=== PATIENT | female | born 1935 | race Hispanic/Latino ===

== ENCOUNTER 2017-05-03 08:51 | Inpatient (IN) | payer MEDICARE ==
[2017-05-03] MEDS ORDERED: ANTIVERT PO ONE (10:11)
[2017-05-03 10:41] LABS: Basophils % (Auto) 0.7 % (0.0-1.8); Eosinophils % (Auto) 1.5 % (0.0-4.3); Hematocrit 41.4 % (30.3-42.9); Hemoglobin 13.7 gm/dl (10.1-14.3); Mean Corpuscular HGB Conc 33 % (30-34); Mean Corpuscular Hemoglobin 28 pg (28-32); Mean Corpuscular Volume 85 fl (79-97); Platelet Count 217 K/mm3 (140-440); Red Blood Count 4.85 M/mm3 (3.65-5.03); White Blood Count 7.8 K/mm3 (4.5-11.0)
[2017-05-03 10:54] LABS: Alanine Aminotransferase 19 units/L (7-56); Albumin/Globulin Ratio 1.3 %; Alkaline Phosphatase 55 units/L (35-129); Anion Gap 18 mmol/L; Blood Urea Nitrogen 13 mg/dL (7-17); Calcium 9.4 mg/dL (8.4-10.2); Carbon Dioxide 30 mmol/L (22-30); Chloride 96.2 mmol/L (98-107); Glucose 131 mg/dL (65-100); Potassium 3.5 mmol/L (3.6-5.0); Sodium 141 mmol/L (137-145)
--- NOTE | 2017-05-03 10:55 | Emergency Department Report ---
ED Dizziness HPI - General Chief Complaint: Nausea/Vomiting/Diarrhea Stated Complaint: NAUSEA/HYPERTENSION Time Seen by Provider: 05/03/17 10:03 Source: patient, family, EMS Mode of arrival: Stretcher Limitations: No Limitations - History of Present Illness Initial Comments: 81-year-old female with past medical history of hypertension presenting to the ED complaining of near syncope and dizziness. Patient states symptoms started prior to ED arrival when she woke up. Pt states she felt light headed multiple times it was worse with ambulation, improves with rest. The patient states the symptoms are non reproducible with movement of her head. Patient states also that at times she gets severely dizzy to the point where she has vomited several times. Patient denies abdominal pain. Patient states emesis and nonbloody nonbilious. Patient denies: Fever/chills, headache, neck pain, neurologic deficits chest pain. MD Complaint: dizziness, lightheadedness, near syncope -: Sudden Timing: sudden onset Description: lightheadedness, off-balance History of Same: No History of Trauma: No Severity: moderate Improves With: nothing Worsens With: movement, position Associated Symptoms: denies: chest pain, confusion, cough, diaphoresis, fever/ chills, loss of appetite, malaise, seizure, shortness of breath, syncope, weakness - Related Data Allergies Allergy/AdvReac Type Severity Reaction Status Date / Time No Known Allergies Allergy Verified 05/03/17 09:11 ED Review of Systems ROS: Stated complaint: NAUSEA/HYPERTENSION Other details as noted in HPI Constitutional: denies: chills, fever Eyes: denies: eye pain, eye discharge, vision change ENT: denies: ear pain, throat pain Respiratory: denies: cough, shortness of breath, wheezing Cardiovascular: denies: chest pain, palpitations, dyspnea on exertion Endocrine: no symptoms reported Gastrointestinal: nausea, vomiting. denies: abdominal pain, diarrhea, constipation, hematemesis Genitourinary: denies: urgency, dysuria, discharge Musculoskeletal: denies: back pain, joint swelling, arthralgia Skin: denies: rash, lesions Neurological: abnormal gait, vertigo. denies: headache, weakness, paresthesias Psychiatric: denies: anxiety, depression Hematological/Lymphatic: denies: easy bleeding, easy bruising ED Past Medical Hx - Past Medical History Previous Medical History?: Yes Hx Hypertension: Yes Hx Diabetes: Yes (pre-diabetes) Hx GERD: Yes Hx of Cancer: Yes (colon CA w/resection 1993) Hx Arthritis: Yes Hx COPD: Yes Additional medical history: osteoporosis, bladder prolapse - Surgical History Past Surgical History?: Yes Additional Surgical History: colon resection 1993 - Social History Smoking Status: Never Smoker Substance Use Type: None ED Physical Exam - General Limitations: No Limitations General appearance: alert, in no apparent distress - Head Head exam: Present: atraumatic, normocephalic - Eye Eye exam: Present: normal appearance - ENT ENT exam: Present: mucous membranes moist - Neck Neck exam: Present: normal inspection - Respiratory Respiratory exam: Present: normal lung sounds bilaterally. Absent: respiratory distress - Cardiovascular Cardiovascular Exam: Present: regular rate, normal rhythm. Absent: systolic murmur, diastolic murmur, rubs, gallop - GI/Abdominal GI/Abdominal exam: Present: soft, normal bowel sounds. Absent: distended, tenderness, guarding, rebound, hyperactive bowel sounds, hypoactive bowel sounds , organomegaly, bruit, pulsatile mass, hernia - Extremities Exam Extremities exam: Present: normal inspection - Back Exam Back exam: Present: normal inspection - Neurological Exam Neurological exam: Present: alert, oriented X3, CN II-XII intact, reflexes normal. Absent: motor sensory deficit - Psychiatric Psychiatric exam: Present: normal affect, normal mood - Skin Skin exam: Present: warm, dry, intact, normal color. Absent: rash ED Course Vital Signs 05/03/17 05/03/17 05/03/17 08:51 09:00 09:10 Temperature 97.7 F Pulse Rate 70 Respiratory 16 Rate Blood Pressure 162/89 162/89 Blood Pressure 162/89 [Left] O2 Sat by Pulse 95 93 94 Oximetry 05/03/17 05/03/17 05/03/17 09:20 09:30 09:40 Temperature Pulse Rate Respiratory Rate Blood Pressure 181/84 181/84 178/78 Blood Pressure [Left] O2 Sat by Pulse 94 94 93 Oximetry 05/03/17 05/03/17 05/03/17 09:50 10:00 10:10 Temperature Pulse Rate Respiratory Rate Blood Pressure 180/79 180/79 173/80 Blood Pressure [Left] O2 Sat by Pulse 94 95 93 Oximetry - Reevaluation(s) Reevaluation #1: 05/03/17 11:04 NIHSS: 0 ED Medical Decision Making - Lab Data Result diagrams: 05/03/17 10:19 05/03/17 10:19 - EKG Data -: EKG Interpreted by Me EKG shows normal: sinus rhythm, axis (normal ), intervals (QTC 453) Rate: normal (64) - EKG Data Interpretation: no acute changes, normal EKG - Radiology Data Radiology results: report reviewed, image reviewed interpreted by me: CT head: No acute findings. Dr. Williamson CT head: Final impression: No acute intracranial abnormality. Dr Williamson Acute abdomen series: 1 significant bowel gas pattern with right lower quadrant posterior cold surgical anastomosis noted as described. Please correlate 2. Various other findings, included right prior lung surgery. Dr Bourne - Medical Decision Making 81-year-old female with past medical history of hypertension, CAD COPD presenting to the emergency room with near-syncope and dizziness. Patient workup negative for acute findings however her symptoms have not improved since being given treatment in the ED. I will admit for observation and further workup. I have considered differentials of : ACS, COPD exacerbation, AAA, CVA however workup, cleaning physical exam is not consistent with these diagnoses. Critical Care Time: No Critical care attestation.: If time is entered above; I have spent that time in minutes in the direct care of this critically ill patient, excluding procedure time. ED Disposition Clinical Impression: Near syncope Disposition: OP ADMIT IP TO THIS HOSP Is pt being admited?: Yes Does the pt Need Aspirin: No Condition: Stable Referrals: CLAUDIA PIERCE MD [Primary Care Provider] - 3-5 Days
--- NOTE | 2017-05-03 10:56 | Cat Scan Report ---
CT scan of head without contrast: History: Dizziness. Findings: Ventricles are normal in size and midline in location. No evidence of acute ischemia, hemorrhage or mass. No extra axial fluid collection. Normal brainstem and cerebellum. Impression: No acute intracranial abnormality.
--- NOTE | 2017-05-03 11:01 | XRay Report ---
ABDOMINAL SERIES INDICATION: Nausea. COMPARISON: None similar. FINDINGS: Abdominal series, three radiographs, demonstrate few air containing small bowel loop in the left lower quadrant measuring 2.4 cm caliber. Ascending colon demonstrates anastomotic staple line with caliber of approximately 6.3 cm. No significant further distal colonic air noted. Rectal air and stool though seen. No focal suspicious calcifications, pneumatosis or pneumoperitoneum. Chest radiograph demonstrates normal heart size, aortic knob calcifications and right hilar/suprahilar scarring. Right hemidiaphragm may also be elevated. Right fifth rib resection. Few mild bony degenerative changes. Osteopenia. CONCLUSION: 1. Nonspecific bowel gas pattern with right lower quadrant postsurgical anastomosis noted, as described. Please correlate. 2. Various other findings, including prior right lung surgery. Thank you for the opportunity to participate in this patient's care.
[2017-05-03 13:29] LABS: Bacteria,Urine 1+ /HPF (Negative); Bilirubin,Urine NEG (Negative); Blood,Urine NEG (Negative); Ketones,Urine NEG (Negative); Leukocyte Esterase,Urine LG (Negative); Mucus,Urine FEW /HPF; Nitrite,Urine NEG (Negative); Protein,Urine <15 mg/dL mg/dL (Negative); Urobilinogen,Urine < 2.0 mg/dL (<2.0)
--- NOTE | 2017-05-03 13:29 | Admit Criteria Form ---
Admission Criteria Documentation: DIZZINESS Clinical Indications for Admission to Inpatient Care (Place 'X' for any and all applicable criteria): Admission is indicated for ANY ONE of the following(1)(2)(3)(4): [X ]I. Inpatient admission required rather than observation care (Also use Dizziness: Observation Care as appropriate) because of ANY ONE of the following: [ ]a) Hemodynamic instability that is severe or persistent [ ]b) Signs or symptoms that are severe or persistent (eg, vomit, orthostasis, inability to ambulate) [ ]c) Cardiac arrhythmias of immediate concern [ ]d) Severe (new) neurologic findings requiring inpatient care as indicated by ANY ONE of the following(6)(7): [ ]1) Cerebral bleeding, ischemia, or vasospasm(8)(9) [ ]2) Increased intracranial pressure or hydrocephalus(10)(11)(12) [ ]3) Papilledema [ ]4) Cerebral edema [ ]5) Mass effect on CT scan [ ]e) Continuous IV infusion of anticoagulation, platelet inhibitor, vasoactive, or antiarrhythmic medication [ ]f) Cerebral bleeding, hydrocephalus, or vasospasm monitoring(14) [ ]g) Increased intracranial pressure or cerebral edema monitoring [ ]h) Vomiting that is severe or persistent [X ]i) Other condition, treatment or monitoring requiring inpatient admission [ ]II. A suspected etiology that requires admission for treatment [ ]III. Acute bacterial labyrinthitis [ ]IV. Cerebellar, brainstem, or cerebral ischemia or hemorrhage (5) Extended stay beyond goal length of stay may be needed for evaluating and treating a specific cause of dizziness, including(32) [ ]a) Head injury (Also use Traumatic Brain Injury, Nonsurgical Treatment guideline) [ ]b) New-onset vertebrobasilar vascular insufficiency [ ]c) Acute Meniere disease with intractable symptoms [ ]d) Cardiac arrhythmias or conduction defects [ ]e) Acute neurologic event causing dizziness [ ]f) Myocardial ischemia [ ]g) Acute bacterial labyrinthitis. [ ]h) Severe acute vestibular neuronitis The original [facility] content created by [email or web address] has been revised. The portions of the content which have been revised are identified through the use of italic text or in bold, and [facility] has neither reviewed nor approved the modified material. All other unmodified content is copyright [facility]. Please see references footnoted in the original [facility] edition 2016 Admission Criteria Met: Yes
--- NOTE | 2017-05-03 21:08 | History and Physical Report ---
History of Present Illness Date of examination: 05/03/17 Date of admission: 05/03/17 13:36 Chief complaint: [place] Dizzy and was about to pass out 1 hr ago History of present illness: KARLEE: 81-year-old female with past medical history of hypertension presenting to the ED complaining of near syncope and dizziness. Patient states symptoms started prior to ED arrival when she woke up. Pt states she felt light headed multiple times it was worse with ambulation, improves with rest. The patient states the symptoms are non reproducible with movement of her head. Patient states also that at times she gets severely dizzy to the point where she has vomited several times. Patient denies abdominal pain. Patient states emesis was nonbloody and nonbilious. Patient denies: Fever/chills, headache, neck pain, neurologic deficits chest pain. MD Complaint: dizziness, lightheadedness, near syncope -: Sudden Timing: sudden onset Description: lightheadedness, off-balance History of Same: No History of Trauma: No Severity: moderate Improves With: nothing Worsens With: movement, position Associated Symptoms: denies: chest pain, confusion, cough, diaphoresis, fever/ chills, loss of appetite, malaise, seizure, shortness of breath, syncope, weakness - Related Data Allergies Allergy/AdvReac Type Severity Reaction Status Date / Time No Known Allergies Allergy Verified 05/03/17 09:11 - Past Medical History Previous Medical History?: Yes Hx Hypertension: Yes Hx Diabetes: Yes (pre-diabetes) Hx GERD: Yes Hx of Cancer: Yes (colon CA w/resection 1993) Hx Arthritis: Yes Hx COPD: Yes Additional medical history: osteoporosis, bladder prolapse - Surgical History Past Surgical History?: Yes Additional Surgical History: colon resection 1993 - Social History Smoking Status: Never Smoker Substance Use Type: None Fam Hx HTN Review of Systems Stated complaint: NAUSEA/HYPERTENSION Other details as noted in HPI Constitutional: denies: chills, fever Eyes: denies: eye pain, eye discharge, vision change ENT: denies: ear pain, throat pain Respiratory: denies: cough, shortness of breath, wheezing Cardiovascular: denies: chest pain, palpitations, dyspnea on exertion Endocrine: no symptoms reported Gastrointestinal: nausea, vomiting. denies: abdominal pain, diarrhea, constipation, hematemesis Genitourinary: denies: urgency, dysuria, discharge Musculoskeletal: denies: back pain, joint swelling, arthralgia Skin: denies: rash, lesions Neurological: abnormal gait, vertigo. denies: headache, weakness, paresthesias Psychiatric: denies: anxiety, depression Hematological/Lymphatic: denies: easy bleeding, easy bruising Medications and Allergies Allergies Allergy/AdvReac Type Severity Reaction Status Date / Time No Known Allergies Allergy Verified 05/03/17 09:11 Home Medications Medication Instructions Recorded Confirmed Last Taken Type Aspirin [Adult Low Dose Aspirin EC] 81 mg PO DAILY 05/03/17 05/03/17 05/02/17 History Carvedilol [Coreg] 3.125 mg PO BID 05/03/17 05/03/17 05/02/17 History Ergocalciferol [Vitamin D2] 1 cap PO QWEEK 05/03/17 05/03/17 04/29/17 History Hydrochlorothiazide [HCTZ] 25 mg PO QDAY 05/03/17 05/03/17 05/02/17 History Lovastatin [Altoprev] 20 mg PO QPM 05/03/17 05/03/17 05/02/17 History metFORMIN [Glucophage] 500 mg PO QDAY 05/03/17 05/03/17 05/02/17 History Exam - Physical Exam Narrative exam: Lying comfortably - Constitutional Vitals: Temp Pulse Resp BP Pulse Ox 98.5 F 62 20 140/77 94 05/03/17 19:38 05/03/17 20:40 05/03/17 19:38 05/03/17 19:38 05/03/17 19:38 General appearance: Present: no acute distress, well-nourished - EENT Eyes: Present: PERRL ENT: hearing intact, clear oral mucosa - Neck Neck: Present: supple, normal ROM - Respiratory Respiratory effort: normal Respiratory: bilateral: CTA - Cardiovascular Heart rate: 76 Rhythm: regular Heart Sounds: Present: S1 & S2. Absent: rub, click - Extremities Extremities: pulses intact, pulses symmetrical, No edema Peripheral Pulses: within normal limits - Abdominal General gastrointestinal: Present: soft, non-tender, non-distended, normal bowel sounds Female genitourinary: Present: normal - Rectal Rectal Exam: deferred - Integumentary Integumentary: Present: clear, warm, dry - Musculoskeletal Musculoskeletal: gait normal, strength equal bilaterally - Psychiatric Psychiatric: appropriate mood/affect, intact judgment & insight - Neurologic Neurologic: CNII-XII intact, moves all extremities, gait normal - Allied Health Allied health notes reviewed: nursing Results - Labs CBC & Chem 7: 05/03/17 10:19 05/03/17 10:19 Labs: Laboratory Last Values WBC 7.8 K/mm3 (4.5-11.0) 05/03/17 10:19 RBC 4.85 M/mm3 (3.65-5.03) 05/03/17 10:19 Hgb 13.7 gm/dl (10.1-14.3) 05/03/17 10:19 Hct 41.4 % (30.3-42.9) 05/03/17 10:19 MCV 85 fl (79-97) 05/03/17 10:19 MCH 28 pg (28-32) 05/03/17 10:19 MCHC 33 % (30-34) 05/03/17 10:19 RDW 14.0 % (13.2-15.2) 05/03/17 10:19 Plt Count 217 K/mm3 (140-440) 05/03/17 10:19 Lymph % (Auto) 11.2 % (13.4-35.0) L 05/03/17 10:19 [place] % (Auto) 5.1 % (0.0-7.3) 05/03/17 10:19 Eos % (Auto) 1.5 % (0.0-4.3) 05/03/17 10:19 Baso % (Auto) 0.7 % (0.0-1.8) 05/03/17 10:19 Lymph # 0.9 K/mm3 (1.2-5.4) L 05/03/17 10:19 [place] # 0.4 K/mm3 (0.0-0.8) 05/03/17 10:19 Eos # 0.1 K/mm3 (0.0-0.4) 05/03/17 10:19 Baso # 0.1 K/mm3 (0.0-0.1) 05/03/17 10:19 Seg Neutrophils % 81.5 % (40.0-70.0) H 05/03/17 10:19 Seg Neutrophils # 6.4 K/mm3 (1.8-7.7) 05/03/17 10:19 Sodium 141 mmol/L (137-145) 05/03/17 10:19 Potassium 3.5 mmol/L (3.6-5.0) L 05/03/17 10:19 Chloride 96.2 mmol/L (98-107) L 05/03/17 10:19 Carbon Dioxide 30 mmol/L (22-30) 05/03/17 10:19 Anion Gap 18 mmol/L 05/03/17 10:19 BUN 13 mg/dL (7-17) 05/03/17 10:19 Creatinine 0.5 mg/dL (0.7-1.2) L 05/03/17 10:19 Estimated GFR > 60 ml/min 05/03/17 10:19 BUN/Creatinine Ratio 26.00 % 05/03/17 10:19 Glucose 131 mg/dL (65-100) H 05/03/17 10:19 Calcium 9.4 mg/dL (8.4-10.2) 05/03/17 10:19 Total Bilirubin 0.70 mg/dL (0.1-1.2) 05/03/17 10:19 AST 28 units/L (5-40) 05/03/17 10:19 ALT 19 units/L (7-56) 05/03/17 10:19 Alkaline Phosphatase 55 units/L (35-129) 05/03/17 10:19 Troponin T < 0.010 ng/mL (0.00-0.029) 05/03/17 10:19 NT-Pro-B Natriuret Pep 135.4 pg/mL (0-900) 05/03/17 10:19 Total Protein 7.0 g/dL (6.3-8.2) 05/03/17 10:19 Albumin 4.0 g/dL (3.9-5) 05/03/17 10:19 Albumin/Globulin Ratio 1.3 % 05/03/17 10:19 Urine Color Yellow (Yellow) 05/03/17 13:11 Urine Turbidity Clear (Clear) 05/03/17 13:11 Urine pH 6.0 (5.0-7.0) 05/03/17 13:11 Ur Specific [place] 1.014 (1.003-1.030) 05/03/17 13:11 Urine Protein <15 mg/dl mg/dL (Negative) 05/03/17 13:11 Urine Glucose (UA) Neg mg/dL (Negative) 05/03/17 13:11 Urine Ketones Neg mg/dL (Negative) 05/03/17 13:11 Urine Blood Neg (Negative) 05/03/17 13:11 Urine Nitrite Neg (Negative) 05/03/17 13:11 Urine Bilirubin Neg (Negative) 05/03/17 13:11 Urine Urobilinogen < 2.0 mg/dL (<2.0) 05/03/17 13:11 Ur Leukocyte Esterase Lg (Negative) 05/03/17 13:11 Urine WBC (Auto) 12.0 /HPF (0.0-6.0) H 05/03/17 13:11 Urine RBC (Auto) 1.0 /HPF (0.0-6.0) 05/03/17 13:11 U Epithel Cells (Auto) 2.0 /HPF (0-13.0) 05/03/17 13:11 Urine Bacteria (Auto) 1+ /HPF (Negative) 05/03/17 13:11 Urine Mucus Few /HPF 05/03/17 13:11 - Imaging and Cardiology EKG: report reviewed Chest x-ray: report reviewed (NAF) CT Scan - head: report reviewed (NAF) Assessment and Plan Advance Directives: Yes (Full code) VTE prophylaxis?: Chemical Plan of care discussed with patient/family: Yes - Patient Problems (1) Near syncope Current Visit: Yes Status: Acute Plan to address problem: Syncope w/u in the form of serial cardiac enzymes Lexiscan Echo and Carotid duplex scan (2) HTN (hypertension) Current Visit: Yes Status: Chronic Qualifiers: Hypertension type: essential hypertension Qualified Code(s): I10 - Essential (primary) hypertension Plan to address problem: Cont Coreg 3.125 bid HCTZ maybe stopped.Maybe the culprit in causing volume depletion and near syncope (3) T2DM (type 2 diabetes mellitus) Current Visit: Yes Status: Chronic Qualifiers: Diabetes mellitus complication status: without complication Diabetes mellitus complication detail: D Diabetic retinopathy severity: D Proliferative retinopathy type: P Diabetes mellitus macular edema: D Diabetes mellitus termite treater insulin use: D Laterality: L Chronic kidney disease stage: C Plan to address problem: cont metformin and coverage.Check A1c (4) Hypokalemia Current Visit: Yes Status: Acute Plan to address problem: Supplemented (5) Volume depletion Current Visit: Yes Status: Chronic Plan to address problem: sec to HCTZ (6) DVT prophylaxis Current Visit: Yes Status: Acute Plan to address problem: on lovenox 40 mg sq qd
[2017-05-03] MEDS ORDERED: PERCOCET 5/325 PO PRN (21:11)
[2017-05-03] MEDS ORDERED: DULCOLAX PR PRN (21:11)
[2017-05-03] MEDS ORDERED: ZOFRAN IV PRN (21:11)
[2017-05-03] MEDS ORDERED: TYLENOL PO PRN (21:11)
[2017-05-03] MEDS ORDERED: MILK OF MAGNESIA PO PRN (21:11)
[2017-05-03] MEDS: HALFPRIN EC PO SCH (21:55)
[2017-05-03] MEDS: COREG PO SCH (21:55)
[2017-05-03] MEDS ORDERED: HCTZ PO SCH (22:00)
[2017-05-03 23:49] LABS: Creatine Kinase MB 1.1 ng/mL (0.0-4.0)
[2017-05-04] MEDS ORDERED: K-DUR PO ONE (07:26)
[2017-05-04] MEDS: NOVOLOG SUB-Q SCH ×4 (08:58→22:14)
[2017-05-04] MEDS: COREG PO SCH (09:14)
[2017-05-04] MEDS: HALFPRIN EC PO SCH (09:15)
[2017-05-04] MEDS: GLUCOPHAGE PO SCH (09:15)
[2017-05-04 12:00] LABS: Basophils % (Auto) 0.8 % (0.0-1.8); Eosinophils % (Auto) 3.3 % (0.0-4.3); Hematocrit 38.6 % (30.3-42.9); Mean Corpuscular HGB Conc 34 % (30-34); Mean Corpuscular Hemoglobin 29 pg (28-32); Mean Corpuscular Volume 87 fl (79-97); Platelet Count 210 K/mm3 (140-440); Red Blood Count 4.42 M/mm3 (3.65-5.03); Red Cell Distribution Width 13.8 % (13.2-15.2); White Blood Count 6.2 K/mm3 (4.5-11.0)
[2017-05-04 12:12] LABS: Alanine Aminotransferase 15 units/L (7-56); Albumin 3.6 g/dL (3.9-5); Albumin/Globulin Ratio 1.2 %; Alkaline Phosphatase 52 units/L (35-129); Anion Gap 19 mmol/L; Blood Urea Nitrogen 13 mg/dL (7-17); Calcium 8.8 mg/dL (8.4-10.2); Carbon Dioxide 28 mmol/L (22-30); Chloride 96.1 mmol/L (98-107); Glucose 170 mg/dL (65-100); Potassium 3.2 mmol/L (3.6-5.0); Sodium 140 mmol/L (137-145); Total Protein 6.6 g/dL (6.3-8.2)
[2017-05-04 13:22] LABS: Creatine Kinase 37 units/L (30-135)
[2017-05-04 13:24] LABS: Creatine Kinase MB < 1.0 ng/mL (0.0-4.0)
--- NOTE | 2017-05-04 14:10 | Progress Note ---
Assessment and Plan Assessment and plan: Near syncope. Etiology unclear. She had bradycardia of 49-50s on monitor. Obtain Echocardiogram. Consult cardiology Hypertension. BP stable. Diabetes mellitus type 2. Monitor fingerstick glucose before every meal and at bedtime. Bradycardia heart rate 49 to 50s.. She is on Coreg. Discontinue Coreg for now UTI acute cystitis. Start Levaquin. urine cultures ordered. DVT prophylaxis with heparin subcut Full CODE STATUS History Interval history: Syncope Hospitalist Physical - Physical exam Narrative exam: Gen Appearance: Not in acute distress, HEENT: normocephalic, atraumatic Neck: supple, no JVD Lungs: clear to auscultation bilaterally, no crackles or wheezes Heart: S1 and S2 regular, no murmurs or gallop Abdomen: Soft, non tender, non distended, normal bowel sounds, Extremity: No edema, no clubbing or cyanosis Neuro : Awake,alert,oriented, moves all ext Psych : normal mood - Constitutional Vitals: Temp Pulse Resp BP Pulse Ox 98.3 F 56 L 18 136/63 94 05/04/17 07:41 05/04/17 09:14 05/04/17 07:41 05/04/17 09:14 05/04/17 07:41 Results - Labs CBC & Chem 7: 05/04/17 09:54 05/04/17 09:54 Labs: Laboratory Last Values WBC 6.2 K/mm3 (4.5-11.0) 05/04/17 09:54 RBC 4.42 M/mm3 (3.65-5.03) 05/04/17 09:54 Hgb 13.0 gm/dl (10.1-14.3) 05/04/17 09:54 Hct 38.6 % (30.3-42.9) 05/04/17 09:54 MCV 87 fl (79-97) 05/04/17 09:54 MCH 29 pg (28-32) 05/04/17 09:54 MCHC 34 % (30-34) 05/04/17 09:54 RDW 13.8 % (13.2-15.2) 05/04/17 09:54 Plt Count 210 K/mm3 (140-440) 05/04/17 09:54 Lymph % (Auto) 23.1 % (13.4-35.0) 05/04/17 09:54 [place] % (Auto) 6.8 % (0.0-7.3) 05/04/17 09:54 Eos % (Auto) 3.3 % (0.0-4.3) 05/04/17 09:54 Baso % (Auto) 0.8 % (0.0-1.8) 05/04/17 09:54 Lymph # 1.4 K/mm3 (1.2-5.4) 05/04/17 09:54 [place] # 0.4 K/mm3 (0.0-0.8) 05/04/17 09:54 Eos # 0.2 K/mm3 (0.0-0.4) 05/04/17 09:54 Baso # 0.0 K/mm3 (0.0-0.1) 05/04/17 09:54 Seg Neutrophils % 66.0 % (40.0-70.0) 05/04/17 09:54 Seg Neutrophils # 4.1 K/mm3 (1.8-7.7) 05/04/17 09:54 Sodium 140 mmol/L (137-145) 05/04/17 09:54 Potassium 3.2 mmol/L (3.6-5.0) L 05/04/17 09:54 Chloride 96.1 mmol/L (98-107) L 05/04/17 09:54 Carbon Dioxide 28 mmol/L (22-30) 05/04/17 09:54 Anion Gap 19 mmol/L 05/04/17 09:54 BUN 13 mg/dL (7-17) 05/04/17 09:54 Creatinine 0.5 mg/dL (0.7-1.2) L 05/04/17 09:54 Estimated GFR > 60 ml/min 05/04/17 09:54 BUN/Creatinine Ratio 26.00 % 05/04/17 09:54 Glucose 170 mg/dL (65-100) H 05/04/17 09:54 Hemoglobin A1c 6.0 % (4-6) 05/03/17 23:07 Calcium 8.8 mg/dL (8.4-10.2) 05/04/17 09:54 Total Bilirubin 0.50 mg/dL (0.1-1.2) 05/04/17 09:54 AST 21 units/L (5-40) 05/04/17 09:54 ALT 15 units/L (7-56) 05/04/17 09:54 Alkaline Phosphatase 52 units/L (35-129) 05/04/17 09:54 Total Creatine Kinase 37 units/L (30-135) 05/04/17 09:54 CK-MB (CK-2) < 1.0 ng/mL (0.0-4.0) 05/04/17 09:54 CK-MB (CK-2) Rel Index 2.7 (0-4) 05/04/17 09:54 Troponin T < 0.010 ng/mL (0.00-0.029) 05/04/17 09:54 NT-Pro-B Natriuret Pep 135.4 pg/mL (0-900) 05/03/17 10:19 Total Protein 6.6 g/dL (6.3-8.2) 05/04/17 09:54 Albumin 3.6 g/dL (3.9-5) L 05/04/17 09:54 Albumin/Globulin Ratio 1.2 % 05/04/17 09:54 Urine Color Yellow (Yellow) 05/03/17 13:11 Urine Turbidity Clear (Clear) 05/03/17 13:11 Urine pH 6.0 (5.0-7.0) 05/03/17 13:11 Ur Specific [place] 1.014 (1.003-1.030) 05/03/17 13:11 Urine Protein <15 mg/dl mg/dL (Negative) 05/03/17 13:11 Urine Glucose (UA) Neg mg/dL (Negative) 05/03/17 13:11 Urine Ketones Neg mg/dL (Negative) 05/03/17 13:11 Urine Blood Neg (Negative) 05/03/17 13:11 Urine Nitrite Neg (Negative) 05/03/17 13:11 Urine Bilirubin Neg (Negative) 05/03/17 13:11 Urine Urobilinogen < 2.0 mg/dL (<2.0) 05/03/17 13:11 Ur Leukocyte Esterase Lg (Negative) 05/03/17 13:11 Urine WBC (Auto) 12.0 /HPF (0.0-6.0) H 05/03/17 13:11 Urine RBC (Auto) 1.0 /HPF (0.0-6.0) 05/03/17 13:11 U Epithel Cells (Auto) 2.0 /HPF (0-13.0) 05/03/17 13:11 Urine Bacteria (Auto) 1+ /HPF (Negative) 05/03/17 13:11 Urine Mucus Few /HPF 05/03/17 13:11
[2017-05-04] MEDS: POTASSIUM CHLORIDE PO SCH ×2 (15:46→18:48)
[2017-05-04] MEDS: LEVAQUIN 500MG/100ML 500 MG/100 ML BAG IV SCH (15:46)
[2017-05-04] MEDS ORDERED: NON-FORMULARY (Lovastatin [Altoprev] 20 MG) PO SCH (18:00)
[2017-05-04] MEDS: ZOCOR PO SCH (22:15)
[2017-05-04] MEDS: HEPARIN SUB-Q SCH (22:16)
[2017-05-05 07:29] LABS: Anion Gap 20 mmol/L; Blood Urea Nitrogen 14 mg/dL (7-17); Calcium 8.8 mg/dL (8.4-10.2); Carbon Dioxide 22 mmol/L (22-30); Chloride 99.6 mmol/L (98-107); Glucose 117 mg/dL (65-100); Potassium 4.4 mmol/L (3.6-5.0); Sodium 137 mmol/L (137-145)
[2017-05-05] MEDS: HEPARIN SUB-Q SCH ×2 (11:00→22:44)
--- NOTE | 2017-05-05 11:20 | Discharge Summary ---
Providers - Providers Date of Admission: 05/03/17 13:36 Date of discharge: 05/06/17 Attending physician: GENARO COOK MD 05/04/17 11:00 Consult to Physician [CONS] Routine Consulting Provider: JAMEL GRAY Reason For Exam: near syncope, bradycardia Place consult to:: Dr. Gray Notified:: Deonte TAI Phone number called:: Was contact made?: Yes If yes, spoke with:: [facility] service Time called:: 12:03 Primary care physician: CLAUDIA PIERCE Hospitalization Condition: Stable Disposition: DC/[place]-06 HOME UNDER [facility] Time spent for discharge: 35 MINS Exam - Constitutional Vitals: Temp Pulse Resp BP Pulse Ox 97.4 F L 59 L 20 133/66 97 05/05/17 07:25 05/05/17 07:25 05/05/17 07:25 05/05/17 07:25 05/05/17 07:25 Plan Activity: advance as tolerated, fall precautions Diet: diabetic Special Instructions: record daily BP diary, record blood sugar diary Additional Instructions: PCP TO OBTAIN MRI AND ALSO NEUROLOGY FOLLOW UP OUTPATIENT IN 1 WEEK. Follow up with: CLAUDIA PIERCE MD [Primary Care Provider] - 3-5 Days GUMARO ANGEL MD [Staff Physician] - 7 Days JAMEL GRAY MD [Staff Physician] - 7 Days Prescriptions: Cefuroxime [Ceftin] 250 mg PO Q12H #6 tablet Lisinopril [Zestril TAB] 10 mg PO QDAY #30 tablet Ondansetron [Zofran TAB] 4 mg PO Q8HR PRN #30 tablet PRN Reason: Nausea And Vomiting
[2017-05-05] MEDS: LEVAQUIN 500MG/100ML 500 MG/100 ML BAG IV SCH (11:32)
[2017-05-05] MEDS: NOVOLOG SUB-Q SCH ×5 (11:33→22:44)
[2017-05-05] MEDS: HALFPRIN EC PO SCH (11:40)
[2017-05-05] MEDS: GLUCOPHAGE PO SCH (11:40)
--- NOTE | 2017-05-05 12:37 | Consultation ---
History of Present Illness Consult date: 05/05/17 Consult reason: syncope History of present illness: 81 YO woman with h/o htn and DM who presented to ED after episode of near syncope. She reports she had been vomiting and feeling dizzy when she tried to stand. She reports at one point she got so dizzy she thought she was going to pass out but did not actually lose consciousness. She does not recall any palpitations, chest pain, syncope or pre-syncope. She was noted to be hypotensive and also found to have mild sinus bradycardia. She is normally treated with coreg and HCTZ which are being held currently. She has felt better since hospital admission. BP and HR have improved. ECG on presentation revealed NSR with poor precordial R wave transition Past History Past Medical History: diabetes, hypertension Social history: denies: smoking Family history: no significant family history Medications and Allergies Allergies Allergy/AdvReac Type Severity Reaction Status Date / Time No Known Allergies Allergy Verified 05/03/17 09:11 Home Medications Medication Instructions Recorded Confirmed Last Taken Type Aspirin [Adult Low Dose Aspirin EC] 81 mg PO DAILY 05/03/17 05/03/17 05/02/17 History Ergocalciferol [Vitamin D2] 1 cap PO QWEEK 05/03/17 05/03/17 04/29/17 History Hydrochlorothiazide [HCTZ] 25 mg PO QDAY 05/03/17 05/03/17 05/02/17 History Lovastatin [Altoprev] 20 mg PO QPM 05/03/17 05/03/17 05/02/17 History metFORMIN [Glucophage] 500 mg PO QDAY 05/03/17 05/03/17 05/02/17 History Cefuroxime [Ceftin] 250 mg PO Q12H #6 tablet 05/05/17 Unknown Rx Ondansetron [Zofran TAB] 4 mg PO Q8HR PRN #30 tablet 05/05/17 Unknown Rx Active Meds: Active Medications Acetaminophen (Tylenol) 650 mg PO Q4H PRN PRN Reason: Pain MILD(1-3)/Fever >100.5/ROBERSON Aspirin (Halfprin Ec) 81 mg PO DAILY GISELE Last Admin: 05/05/17 11:40 Dose: 81 mg Bisacodyl (Dulcolax) 10 mg DC QDAY PRN PRN Reason: Constipation unrelieved by MOM Ergocalciferol (Vitamin D2) 50,000 unit PO Fr GISELE Heparin Sodium (Porcine) (Heparin) 5,000 unit SUB-Q Q12HR COUNTS INCLUDE 234 BEDS AT THE [facility] Last Admin: 05/04/17 22:16 Dose: 5,000 unit Insulin Aspart (Novolog) 0 units SUB-Q ACHS GISELE PRN Reason: Protocol Last Admin: 05/05/17 11:33 Dose: Not Given Magnesium Hydroxide (Milk Of Magnesia) 30 ml PO Q4H PRN PRN Reason: Constipation Metformin HCl (Glucophage) 500 mg PO QDAY COUNTS INCLUDE 234 BEDS AT THE [facility] Last Admin: 05/05/17 11:40 Dose: 500 mg Ondansetron HCl (Zofran) 4 mg IV Q8H PRN PRN Reason: N/V unrelieved by Regfletcher Oxycodone/Acetaminophen (Percocet 5/325) 1 tab PO Q6H PRN PRN Reason: Pain, Moderate (4-6) Simvastatin (Zocor) 10 mg PO QHS COUNTS INCLUDE 234 BEDS AT THE [facility] Last Admin: 05/04/17 22:15 Dose: 10 mg Review of Systems All systems: negative (per hpi) Physical Examination Vital Signs Temp Pulse Resp BP Pulse Ox 97.7 F 70 16 162/89 95 05/03/17 08:51 05/03/17 08:51 05/03/17 08:51 05/03/17 08:51 05/03/17 08:51 General appearance: no acute distress HEENT: Positive: PERRL, EOMI Cardiac: Positive: Reg Rate and Rhythm Lungs: Positive: clear to auscultation. Negative: Wheezes Results 05/04/17 09:54 05/05/17 06:55 Cardiac Enzymes 05/04/17 Range/Units 09:54 CK-MB (CK-2) < 1.0 (0.0-4.0) ng/mL Comprehensive Metabolic Panel 05/05/17 Range/Units 06:55 Sodium 137 (137-145) mmol/L Potassium 4.4 D (3.6-5.0) mmol/L Chloride 99.6 (98-107) mmol/L Carbon Dioxide 22 (22-30) mmol/L BUN 14 (7-17) mg/dL Creatinine 0.5 L (0.7-1.2) mg/dL Glucose 117 H (65-100) mg/dL Calcium 8.8 (8.4-10.2) mg/dL Assessment and Plan Dizzyness and pre-syncope: Suggestive of dehydration/orthostasis Mild sinus bradycardia: Resolved since coreg has been held Recommend: Check Echocardiogram. Check thyroid function. Continue to hold diuretic and coreg - monitor BP.
--- NOTE | 2017-05-05 16:43 | Progress Note ---
Assessment and Plan Assessment and plan: Patient is a 81-year-old female with past medical history of hypertension presenting to the ED complaining of near syncope and dizziness. She reports nausea with 3 days prior to presentation. Pt states she felt light headed multiple times it was worse with ambulation, improves with rest and had an episode of near syncope following 3 episode of vomiting, Nonbloody, no billious prior to arriving in the ER. The patient states the symptoms are non reproducible with movement of her head. She reports symptoms with ambulation but today reports improvements. Patient denies abdominal pain. On admission shows moderately hypotensive with mild sinus bradycardia. She normally is on Coreg and hydrochlorothiazide which were both held. EKG showed normal sinus rhythm with bundle pericardial R-wave progression. * Near syncope * Hypertension * Diabetes Mellitus * Bradycardia * Acute cystitis Plan * Supportive care continue gentle hydration. Will discontinue hydrochlorothiazide and hold beta victor m at this time. * We'll obtain echocardiogram * Cardiology input noted * will start on ceftin * Continue blood sugar control * suggest ACEI on discharge for BP considering DM, patient denies any hx of allergy to ACEI or ARB * Potassium replaced * dvt/GI prophy History Interval history: Patient seen and examined this morning and reports some improvement in symptoms. Denies any further dizziness nausea vomiting or diarrhea. Denies any fever. She also denies any urinary incontinence or urgency or frequency. No other adverse event reported by nursing staff Hospitalist Physical - Physical exam Narrative exam: VITAL SIGNS: Reviewed. GENERAL: The patient appeared frail elderly lady. Vital signs as documented. HEAD: No signs of head trauma. EYES: Pupils are equal. Extraocular motions intact. EARS: Hearing grossly intact. MOUTH: Oropharynx is normal. NECK: No adenopathy, no JVD. CHEST: Chest with clear breath sounds bilaterally. No wheezes, rales, or rhonchi. CARDIAC: Regular rate and rhythm. S1 and S2, without murmurs, gallops, or rubs. VASCULAR: No Edema. Peripheral pulses normal and equal in all extremities. ABDOMEN: Soft, without detectable tenderness. No sign of distention. No rebound or guarding, and no masses palpated. Bowel Sounds normal. MUSCULOSKELETAL: Good range of motion of all major joints. Extremities without clubbing, cyanosis or edema. NEUROLOGIC EXAM: Alert and oriented x 3. No focal sensory or strength deficits. Speech normal. Tremor. Follows commands. PSYCHIATRIC: Mood normal. SKIN: No rash or lesions. - Constitutional Vitals: Temp Pulse Resp BP Pulse Ox 98.6 F 65 20 164/72 96 05/05/17 15:40 05/05/17 15:40 05/05/17 15:40 05/05/17 15:40 05/05/17 15:40 General appearance: Present: no acute distress Results - Labs CBC & Chem 7: 05/04/17 09:54 05/05/17 06:55 Labs: Laboratory Last Values WBC 6.2 K/mm3 (4.5-11.0) 05/04/17 09:54 RBC 4.42 M/mm3 (3.65-5.03) 05/04/17 09:54 Hgb 13.0 gm/dl (10.1-14.3) 05/04/17 09:54 Hct 38.6 % (30.3-42.9) 05/04/17 09:54 MCV 87 fl (79-97) 05/04/17 09:54 MCH 29 pg (28-32) 05/04/17 09:54 MCHC 34 % (30-34) 05/04/17 09:54 RDW 13.8 % (13.2-15.2) 05/04/17 09:54 Plt Count 210 K/mm3 (140-440) 05/04/17 09:54 Lymph % (Auto) 23.1 % (13.4-35.0) 05/04/17 09:54 [place] % (Auto) 6.8 % (0.0-7.3) 05/04/17 09:54 Eos % (Auto) 3.3 % (0.0-4.3) 05/04/17 09:54 Baso % (Auto) 0.8 % (0.0-1.8) 05/04/17 09:54 Lymph # 1.4 K/mm3 (1.2-5.4) 05/04/17 09:54 [place] # 0.4 K/mm3 (0.0-0.8) 05/04/17 09:54 Eos # 0.2 K/mm3 (0.0-0.4) 05/04/17 09:54 Baso # 0.0 K/mm3 (0.0-0.1) 05/04/17 09:54 Seg Neutrophils % 66.0 % (40.0-70.0) 05/04/17 09:54 Seg Neutrophils # 4.1 K/mm3 (1.8-7.7) 05/04/17 09:54 Sodium 137 mmol/L (137-145) 05/05/17 06:55 Potassium 4.4 mmol/L (3.6-5.0) D 05/05/17 06:55 Chloride 99.6 mmol/L (98-107) 05/05/17 06:55 Carbon Dioxide 22 mmol/L (22-30) 05/05/17 06:55 Anion Gap 20 mmol/L 05/05/17 06:55 BUN 14 mg/dL (7-17) 05/05/17 06:55 Creatinine 0.5 mg/dL (0.7-1.2) L 05/05/17 06:55 Estimated GFR > 60 ml/min 05/05/17 06:55 BUN/Creatinine Ratio 28.00 % 05/05/17 06:55 Glucose 117 mg/dL (65-100) H 05/05/17 06:55 POC Glucose 126 (70-105) H 05/04/17 21:35 Hemoglobin A1c 6.0 % (4-6) 05/03/17 23:07 Calcium 8.8 mg/dL (8.4-10.2) 05/05/17 06:55 Total Bilirubin 0.50 mg/dL (0.1-1.2) 05/04/17 09:54 AST 21 units/L (5-40) 05/04/17 09:54 ALT 15 units/L (7-56) 05/04/17 09:54 Alkaline Phosphatase 52 units/L (35-129) 05/04/17 09:54 Total Creatine Kinase 37 units/L (30-135) 05/04/17 09:54 CK-MB (CK-2) < 1.0 ng/mL (0.0-4.0) 05/04/17 09:54 CK-MB (CK-2) Rel Index 2.7 (0-4) 05/04/17 09:54 Troponin T < 0.010 ng/mL (0.00-0.029) 05/04/17 09:54 NT-Pro-B Natriuret Pep 135.4 pg/mL (0-900) 05/03/17 10:19 Total Protein 6.6 g/dL (6.3-8.2) 05/04/17 09:54 Albumin 3.6 g/dL (3.9-5) L 05/04/17 09:54 Albumin/Globulin Ratio 1.2 % 05/04/17 09:54 Urine Color Yellow (Yellow) 05/03/17 13:11 Urine Turbidity Clear (Clear) 05/03/17 13:11 Urine pH 6.0 (5.0-7.0) 05/03/17 13:11 Ur Specific [place] 1.014 (1.003-1.030) 05/03/17 13:11 Urine Protein <15 mg/dl mg/dL (Negative) 05/03/17 13:11 Urine Glucose (UA) Neg mg/dL (Negative) 05/03/17 13:11 Urine Ketones Neg mg/dL (Negative) 05/03/17 13:11 Urine Blood Neg (Negative) 05/03/17 13:11 Urine Nitrite Neg (Negative) 05/03/17 13:11 Urine Bilirubin Neg (Negative) 05/03/17 13:11 Urine Urobilinogen < 2.0 mg/dL (<2.0) 05/03/17 13:11 Ur Leukocyte Esterase Lg (Negative) 05/03/17 13:11 Urine WBC (Auto) 12.0 /HPF (0.0-6.0) H 05/03/17 13:11 Urine RBC (Auto) 1.0 /HPF (0.0-6.0) 05/03/17 13:11 U Epithel Cells (Auto) 2.0 /HPF (0-13.0) 05/03/17 13:11 Urine Bacteria (Auto) 1+ /HPF (Negative) 05/03/17 13:11 Urine Mucus Few /HPF 05/03/17 13:11
[2017-05-05] MEDS: ZESTRIL PO SCH (19:30)
[2017-05-05] MEDS: CEFTIN PO SCH (22:43)
[2017-05-05] MEDS: ZOCOR PO SCH (22:44)
[2017-05-06] MEDS: NOVOLOG SUB-Q SCH ×2 (08:20→12:38)
[2017-05-06] MEDS ORDERED: NACL 0.9% 500 ML 500 ML IV ONE ×2 (09:00→13:00)
[2017-05-06 11:44] VITALS: BP 119/62
[2017-05-06] MEDS: ZESTRIL PO SCH (12:40)
[2017-05-06] MEDS: HALFPRIN EC PO SCH (12:40)
[2017-05-06] MEDS: GLUCOPHAGE PO SCH (12:41)
[2017-05-06] MEDS: CEFTIN PO SCH (12:58)
[2017-05-06] MEDS: HEPARIN SUB-Q SCH (13:19)
--- NOTE | 2017-05-06 14:29 | Progress Note ---
Assessment and Plan - Patient Problems (1) Near syncope Current Visit: Yes Status: Acute Plan to address problem: She presented with near syncope, and altered mental status, attributed to dehydration with orthostasis. Cardiac workup including serial ECGs and cardiac enzymes are negative. An echocardiogram demonstrates normal left ventricular systolic function, ejection fraction 55-60%. I have recommended a Persantin thallium stress test, but patient wants to go home and have the thallium stress done as an outpatient. I have given her information to follow-up in our office in 3-5 days schedule a Persantine thallium. Subjective Date of service: 05/06/17 Interval history: The patient is comfortable, no new cardiac complaints. She looks and feels well , no chest pain, no shortness of breath and no palpitations. There is no lower extremity edema. Her echocardiogram done on this admission and was trace normal left ventricle systolic function, ejection fraction 55-60%. The patient states that she feels well today and wants to go home. Her son is in the room, waiting to take her home. Objective Vital Signs Temp Pulse Pulse Resp BP Pulse Ox 05/06/17 12:40 105 H 05/06/17 11:00 97.8 F 101 H 18 119/62 90 05/06/17 07:25 97.9 F 64 18 115/60 05/06/17 05:01 98.4 F 53 L 20 102/55 97 05/06/17 03:47 50 L 05/06/17 00:44 98.3 F 57 L 21 83/52 96 05/05/17 20:55 98.8 F 64 20 126/62 97 05/05/17 20:05 58 L 05/05/17 20:00 20 99 05/05/17 15:40 98.6 F 65 20 164/72 96 - Physical Examination General: No Apparent Distress HEENT: Positive: PERRL, EOMI Neck: Positive: neck supple Cardiac: Positive: Reg Rate and Rhythm Lungs: Positive: Decreased Breath Sounds Neuro: Positive: Grossly Intact Abdomen: Positive: Soft Skin: Positive: Clear Extremities: Absent: edema - Imaging and Cardiology EKG: report reviewed
--- NOTE | 2017-05-07 08:01 | Vascular Lab Report ---
CAROTID DUPLEX STUDY: RIGHT PSVEDV CCA PROX:6412 CCA DIST:8413 ICA PROX:4010 ICA MID:8813 ICA DIST:5913 ECA: 674 VERT: 47 9 LEFT PSVEDV CCA PROX:6010 CCA DIST:8213 ICA PROX:01490 ICA MID:7615 ICA DIST:7917 ECA: 1268 VERT: 50 8 REASON FOR EXAM: Carotid artery stenosis/presyncopal episode. COMMENTS ON THE RIGHT: Doppler frequency analysis is consistent with 16 to 49 percent diameter reduction of the internal carotid artery. Minimal amount of plaque is seen. The common carotid artery is patent. The external carotid artery is patent. The vertebral artery has antegrade flow. COMMENTS ON THE LEFT: Doppler frequency analysis is consistent with 50 to 79 percent diameter reduction of the internal carotid artery. Moderate amount of plaque is noted in the carotid bulb and internal artery The common carotid artery is patent. The external carotid artery is patent. The vertebral artery has antegrade flow. IMPRESSION: 16 to 49 percent diameter reduction in the right internal carotid 50 to 79 percent diameter reduction in the left internal carotid Clinical correlation is recommended. Consider followup study in 6 months.
[2017-05-10] MEDS ORDERED: VITAMIN D2 PO SCH ×2 (10:00)
== END 2017-05-06 14:42 | disposition home health service (06) | DRG 641 ==
LOC: ED 08:51 → 4A 13:36
PROVIDERS: ADMIT Internal Medicine; ATTEND Internal Medicine
DX: E86.0 Dehydration (principal); N30.00 Acute cystitis without hematuria; I95.1 Orthostatic hypotension; R00.1 Bradycardia, unspecified; I10 Essential (primary) hypertension; E11.9 Type 2 diabetes mellitus without complications; K21.9 Gastro-esophageal reflux disease without esophagitis; J44.9 Chronic obstructive pulmonary disease, unspecified; M81.0 Age-related osteoporosis without current pathological fracture; E87.6 Hypokalemia; E86.9 Volume depletion, unspecified; Z85.038 Personal history of other malignant neoplasm of large intestine
CPT/HCPCS: 36415; 70450; 74022; 80048; 80053; 81001; 82550; 82553; 82962; 83036; 83880; 84484; 85025; 87086; 93005; 93010; 93306; 93880; J1644; J1956; J7040